=== PATIENT | female | born 1980 | race African-American/Black ===

== ENCOUNTER 2020-01-17 15:34 | Emergency (ER) | payer BC, SELFPAY ==
[2020-01-17 15:39] VITALS: BP 154/99; PULSE 78; RESP 20; TEMP 36.8; O2SAT 100
--- NOTE | 2020-01-17 16:07 | ED.GENADULT ---
HPI - General Adult General Chief complaint: Chest Pain Stated complaint: Chest Pain, Headache, Body Aches Time Seen by Provider: 01/17/20 15:36 Source: patient Mode of arrival: ambulatory Limitations: no limitations History of Present Illness HPI narrative: Patient is a 39-year-old female who presents to emergency department for evaluation of upper respiratory symptoms for the last several days noting sick contact with a family member patient is unsure as to the etiology of the illness patient notes aching pain to the throat moderate headache rhinorrhea congestion cough productive of phlegm patient was seen in urgent care had negative chest radiograph negative strep and flu. Patient was sent over for evaluation due to chest heaviness likely due to her coughing. Patient on arrival is in no distress has not taken anything for her symptoms Related Data Allergies Allergy/AdvReac Type Severity Reaction Status Date / Time adhesive Allergy Intermediate RASH Unverified 01/17/20 15:43 naproxen Allergy Intermediate Unknown Unverified 01/17/20 15:43 ibuprofen Allergy Mild RASH Verified 01/17/20 15:43 divalproex sodium Allergy Unknown rash Verified 01/17/20 15:43 hydrocortisone Allergy Unknown RASH, Verified 01/17/20 15:43 MOUTH SWELLING NSAIDS (Non-Steroidal Allergy Unknown RASH Verified 01/17/20 15:43 Anti-Inflamma adhesives Allergy Mild Rash Uncoded 01/17/20 15:43 PHENYTOIN SODIUM Allergy Unknown Unknown Uncoded 01/17/20 15:43 Review of Systems Review of Systems: All systems reviewed & are unremarkable except as noted in HPI and below PMFSH Family History Family History (Updated 12/12/13 @ 07:13 by DOCTOR UNKNOWN) Mother Hypertension Grandparent Carcinoma of colon Social History Social History Smoking status: Never smoker Alcohol intake: current Exam Narrative: Exam Narrative: GENERAL: Well-appearing, well-nourished, and in no acute distress. HEAD: Normocephalic, atraumatic. EYES: PERRLA and EOMI. ENT: Nares clear, no rhinorrhea or epistaxis. Mucous membranes moist. Oropharynx without tonsillar hypertrophy exudate or other lesions. CHEST: Clear to auscultation. No respiratory distress. No wheezes rales or rhonchi HEART: Regular rate and rhythm. No murmur heard. EXTREMITIES: Normal range of motion. No edema. SKIN: Warm, dry, no rash. NEURO: No focal deficits. Alert and oriented x3. PSYCH: Normal mood and affect. Course Course Emergency Course: Patient in the room in no distress aware of case findings treatment plan and diagnosis agreeing to follow-up as directed or to return if symptoms worsen or concerns Vital Signs Vital signs: Vital Signs Temperature 98.2 F 01/17/20 15:39 Pulse Rate 78 01/17/20 15:39 Respiratory Rate 20 01/17/20 15:39 Blood Pressure 154/99 H 01/17/20 15:39 Pulse Oximetry 100 01/17/20 15:39 Temperature 98.2 F 01/17/20 15:39 Pulse Rate 78 01/17/20 15:39 Respiratory Rate 20 01/17/20 15:39 Blood Pressure 154/99 H 01/17/20 15:39 Pulse Oximetry 100 01/17/20 15:39 Medical Decision Making MDM Narrative Medical decision making narrative: Patient with upper respiratory infection and swab for COVID advised to self quarantining pending follow-up with primary care to get her results patient otherwise in the room in no distress afebrile no hypoxemia or other concerning findings on the evaluation felt appropriate for outpatient reevaluation given reasons to return Vital Signs Vital Signs: Vital Signs Temperature 98.2 F 01/17/20 15:39 Pulse Rate 78 01/17/20 15:39 Respiratory Rate 20 01/17/20 15:39 Blood Pressure 154/99 H 01/17/20 15:39 Pulse Oximetry 100 01/17/20 15:39 Temperature 98.2 F 01/17/20 15:39 Pulse Rate 78 01/17/20 15:39 Respiratory Rate 20 01/17/20 15:39 Blood Pressure 154/99 H 01/17/20 15:39 Pulse Oximetry 100 01/17/20 15:39 Discharge Mirela
[2020-01-17 16:22] VITALS: BP 163/97; PULSE 73; RESP 20; O2SAT 100
[2020-01-18 13:45] LABS: SARS-CoV-2 RNA PCR Negative
== END 2020-01-17 16:25 | disposition home or self-care (01) ==
PROVIDERS: Emergency Medicine Emergency Medical Services; Emergency Provider Emergency Medicine
DX: J06.9 Acute upper respiratory infection, unspecified (principal); Z20.828 Contact with and (suspected) exposure to other viral communicable diseases
CPT/HCPCS: 87635; 99283; C9803; U0003

== ENCOUNTER → 2020-07-08 10:17 | Outpatient (CLI) | payer BC, SELFPAY ==
[2020-07-08 23:58] LABS: SARS-CoV-2 RNA PCR Negative
== END ==
PROVIDERS: Visit Provider Family Medicine
DX: Z20.822 Contact with and (suspected) exposure to COVID-19 (principal)
CPT/HCPCS: C9803; U0003; U0005

== ENCOUNTER → 2020-12-23 15:56 | Outpatient (CLI) | payer BC, SELFPAY ==
--- NOTE | ~2020-12-23 | MM_ITS ---
EXAMINATION: MM screening [facility] BI w rosibel HISTORY: Screening mammogram TECHNIQUE: Craniocaudal and mediolateral oblique 3-D tomosynthesis images were obtained and synthetic 2-D images were generated. Bilateral rotated lateral cc views. CAD analysis was submitted and interp reted. COMPARISON: No prior mammogram is available for comparison at this institution. BREAST PARENCHYMAL COMPOSITION: The breasts are extremely dense, which lowers the sensitivity of mamm ography. FINDINGS: There is a 3 cm circumscribed opacity with halo sign in the inner mid left breast at approx imately 9:00 position, most likely a benign cyst. Ultrasound correlation is recommended. Otherwise there is no evidence of suspicious mass, calcification, or architectural distortion to sugg est malignancy in either breast.. IMPRESSION: 1. 3 cm circumscribed opacity with halo sign in the inner mid left breast 2. Targeted left breast ultrasound is recommended BI-RADS Category 0: Incomplete: Needs additional imaging evaluation. Reviewed, dictated and finalized at location A.
== END ==
PROVIDERS: PCP Family Medicine; Visit Provider Nurse Practitioner Obstetrics & Gynecology
DX: Z12.31 Encounter for screening mammogram for malignant neoplasm of breast (principal); R92.8 Other abnormal and inconclusive findings on diagnostic imaging of breast
CPT/HCPCS: 77063; 77067

== ENCOUNTER → 2021-01-29 08:21 | Outpatient (CLI) | payer BC, SELFPAY ==
--- NOTE | ~2021-01-29 | US_ITS ---
US breast LT limited INDICATION: Left breast mass seen on recent examination. TECHNIQUE: Dedicated left breast ultrasound COMPARISON: Mammogram dated 12/23/2020 FINDINGS: At 9-10:00 position of the left breast near the areola there is a 2.2 x 1.9 x 1.3 cm cyst. No suspicious masses to suggest malignancy. IMPRESSION: 1: Left breast cyst corresponding to the mammographic finding measuring 2.2 cm maximum dimension. No sonographic evidence for malignancy. Routine yearly screening mammogram and regular clinical breast examination are recommended. BI-RADS CATEGORY 2 - BENIGN FINDINGS Reviewed, dictated and finalized at location A.
== END ==
PROVIDERS: PCP Family Medicine; Visit Provider Nurse Practitioner Obstetrics & Gynecology
DX: R92.8 Other abnormal and inconclusive findings on diagnostic imaging of breast (principal)
CPT/HCPCS: 76642

== ENCOUNTER 2023-09-02 08:05 | Outpatient (CLI) | payer BC, SELFPAY ==
--- NOTE | ~2023-09-02 | MM_ITS ---
EXAMINATION: MM screening [facility] BI w rosibel HISTORY: Screening TECHNIQUE: Craniocaudal and mediolateral oblique 3-D tomosynthesis images were obtained and synthetic 2-D images were generated. CAD analysis was submitted and interpreted. COMPARISON: 12/23/2020 BREAST PARENCHYMAL COMPOSITION: Dense: The breasts are extremely dense, which lowers the sensitivity of mammography. FINDINGS: There is a developing mass in the upper inner quadrant of the left breast which is obscured by fibroglandular tissue. The right breast is stable without evidence for malignancy. IMPRESSION: 1. Developing left breast mass, upper inner quadrant posteriorly. 2. Additional mammographic views and possible breast ultrasound are recommended. BI-RADS Category 0: Incomplete: Needs additional imaging evaluation. Reviewed, dictated and finalized at location A. IMPRESSION: 1. Developing left breast mass, upper inner quadrant posteriorly. 2. Additional mammographic views and possible breast ultrasound are recommended . BI-RADS Category 0: Incomplete: Needs additional imaging evaluation.
== END 2023-09-02 08:06 ==
LOC: MICIMG 08:06
PROVIDERS: PCP Nurse Practitioner Obstetrics & Gynecology; Visit Provider Nurse Practitioner Obstetrics & Gynecology
DX: Z12.31 Encounter for screening mammogram for malignant neoplasm of breast (principal); N63.21 Unspecified lump in the left breast, upper outer quadrant
CPT/HCPCS: 77063; 77067

== ENCOUNTER 2023-10-10 09:43 | Outpatient (CLI) | payer BC, SELFPAY ==
--- NOTE | ~2023-10-10 | MMUS_ITS ---
EXAMINATION: MM diagnostic [facility] LT w rosibel, US breast LT limited HISTORY: Left breast callback, left breast mass TECHNIQUE: Additional 3-D tomosynthesis spot compression images of the left breast were performed and synthetic 2-D images were generated. CAD analysis was submitted and interpreted. High resolution vieyra ited left breast ultrasound was performed. COMPARISON: 12/23/2020, 01/29/2021 FINDINGS: MAMMOGRAPHIC FINDINGS: Breast parenchyma is extremely dense, which lowers the sensitivity of mammography. Spot compression views demonstrate ovoid 3.7 x 2.8 cm low-density mass at the upper, slightly inner l eft breast. No other distortion or mass seen. No suspicious microcalcification. ULTRASOUND: At the 11:00 position left breast, 5 cm from the nipple, there is a 2.9 x 1.4 x 4.2 cm simple cyst. T his is anechoic, circumscribed, wider than tall, with posterior through transmission. There is an add itional 1.0 cm simple cyst also imaged. There is an additional 0.5 cm simple cyst also imaged. IMPRESSION: No evidence for malignancy. Simple left breast cysts, including a dominant 4.2 cm cyst, as detailed above. BI-RADS Category 2: Benign finding(s). Reviewed, dictated and finalized at location M. IMPRESSION: No evidence for malignancy. Simple left breast cysts, including a dominant 4.2 cm cyst, as detailed above. BI-RADS Category 2: Benign finding(s).
== END 2023-10-10 09:44 ==
LOC: MICIMG 09:44
PROVIDERS: PCP Nurse Practitioner Obstetrics & Gynecology; Visit Provider Nurse Practitioner Obstetrics & Gynecology
DX: Z12.31 Encounter for screening mammogram for malignant neoplasm of breast (principal); N60.02 Solitary cyst of left breast; N63.21 Unspecified lump in the left breast, upper outer quadrant; R92.8 Other abnormal and inconclusive findings on diagnostic imaging of breast
CPT/HCPCS: 76642; 77061; 77065; G0279

== ENCOUNTER 2025-01-07 10:48 | Outpatient (CLI) | payer BC, SELFPAY ==
--- OUTSIDE RECORDS SUMMARY | 2024-12-30 09:40 | XMS_ITS ---
Author Organization [facility] Address [address] [place] [address] Care Team Providers Care Pie Bottomer Name Role Phone Endy Bruno Primary Care Provider Yesenia Mobley [phone] REASON FOR VISIT 3 Month Psych F/U & Med Refill Social History Sex Assigned At : Social History Observation Description Sex Assigned At Female Encounters Encounter Location Date Provider Diagnosis [address] [address] 12/30/2024 Endy Bruno Plan Of Treatment Next Appt Details Provider Name:Endy Connell , 01/09/2025 02:40:00 PM, [address] [facility], [place], [address], Progress Notes * Mitchell TORRESDOB:1980 (44 yo F)Acc No.[id number]:12/30/2024 UNLOCKED PROGRESS NOTE Patient: Edgar LEEPaul Mitchell Provider: Catia Bruno DNP, PMHNP-BC :1980 Haylee ge:44 Y S ex:Female Date:12/30/2024 Address:[address] [place], [id number] Subjective: * Chief Complaints: * 1 . 3 Month Psych F/U & Med Refill. * Medical History: Objective: * Vitals: Assessment: Plan: * Treatment: * * Electronic signature of Jazz Bruno , ONDINA, [id number] on 01/07/2025 at 11:40 AM CDT Sign off status: Pending * Provider: Catia Bruno DNP, PMHNP-BC Date: 0 12/30/2024 Generated for Israel fuentes/Janet/eTransmitting on: 0 01/07/2025 11:40 AM CDT
--- NOTE | 2025-01-07 11:02 | ECG_ITS ---
Test Date: 2025-01-07 11:12:56 Measurements Intervals Kiel Rate: 72 P: 58 NE: 188 QRS: 18 QRSD: 81 T: 30 QT: 395 QTc: 434 Interpretive Statements SINUS RHYTHM NORMAL ELECTROCARDIOGRAM No previous ECG available for comparison Electronically Signed On 01-07-2025 12:37:09 CDT by Jose Carlos Joe M.D.
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
[2025-01-07 12:10] LABS: Alanine Aminotransferase 13 U/L (6-35); Albumin Level 4.4 g/dL (3.5-5.1); Alkaline Phosphatase 71 U/L (38-126); Anion Gap 8 mmol/L (4-12); Aspartate Amino Transferase 20 U/L (14-36); Bilirubin,Total 0.4 mg/dL (0.2-1.3); Blood Urea Nitrogen 8 mg/dL (7-17); Calcium 8.9 mg/dL (8.4-10.2); Carbon Dioxide 26 mmol/L (22-30); Chloride 105 mmol/L (98-107); Estimated Glomerular Filt Rate 60; Glucose 88 mg/dL (65-110); Potassium 4.0 mmol/L (3.4-5.0); Sodium 139 mmol/L (137-145); Total Protein 7.7 g/dL (6.3-8.2)
[2025-01-07 13:40] LABS: Lithium < 0.2 mmol/L (0.6-1.2)
== END 2025-01-07 10:49 | disposition home or self-care (01) ==
LOC: ANHSURGERY 10:53
PROVIDERS: Anesthesiology; PCP Family Medicine; Visit Provider Obstetrics & Gynecology
DX: Z01.818 Encounter for other preprocedural examination (principal); N92.0 Excessive and frequent menstruation with regular cycle; I10 Essential (primary) hypertension
CPT/HCPCS: 36415; 80053; 80178; 86850; 86900; 86901; 93005

== ENCOUNTER 2025-01-14 00:37 | Day surgery (SDC) | payer BC, SELFPAY ==
--- NOTE | 2025-01-01 15:28 | SUR.PREOP ---
[facility] has started construction of its new state of the art ER which will open Spring 2026. With this, we anticipate parking may be a challenge for some our surgical patients and families. Parking spaces are limited but are available for all Surgical, obstetrics, and ER patients sharing this lot. If you arrive and find you are having a hard time finding a parking space, please note that we understand the challenges, please drive around the hospital and park near Hospital Entrance 1. When you enter this entrance, you can ask a volunteer to direct or take you back to the surgical waiting area to check in. We appreciate everyone?s understanding of these expected challenges while we build for your future. Report to the Outpatient Waiting Room, entrance under the green pavilion located off [address], at time ___07____ on date ___01/14/25____. Planned Procedure Time: ____09____.? Time changes happen often and if your time is changed the preop area will call you the afternoon before. - You and your visitor will be asked to self-screen and do not enter if you have any COVID symptoms. Please call surgeon if you need to reschedule. - A mask is optional within the hospital at this time. Patients may have clear liquids (water, carbonated beverages, clear teas, apple juice) until 3 hours prior to surgery with a maximum of 20 ounces. - NO CLEAR LIQUIDS AFTER 0600 - No food from midnight until time of surgery and no smoking, or chewing tobacco (or any form of nicotine). No chewing gum, candy or mints. - Infants may have breast milk until 4 hours before surgery, formula 6 hours prior to surgery. - Children will be allowed to drink immediately following surgery.? If applicable, please bring a bottle or sippy cup to assist with drinking. Juice, water, soda, and popsicles are readily available.? For infants on formula, please bring formula the day of surgery.? Pacifiers are allowed. Take only the following medications with a SIP of water on the morning of surgery: BUPROPION DO NOT STOP ANY OF YOUR OTHER PRESCRIPTION MEDICATIONS PRIOR TO SURGERY EXCEPT THE FOLLOWING Hold all vitamins and supplements for 3 days per anesthesiologist. Medications to discontinue per physician N/A Date to take last dose Please no make-up, nail martiniquais, hairspray, perfume, deodorant, or body powder the day of surgery.? No jewelry (including any body piercings) or valuables the day of surgery, leave them at home.? Please take a shower or bath the night before, or the morning of, surgery with an antibacterial soap.? Wear comfortable, loose fitting clothing.? Children are encouraged to wear pajamas. - Jewelry must be removed prior to entering the operating room.? Rings and piercings that are not removed may be cut off. - The hospital will not accept responsibility for valuables.? - Please leave all valuables, including medications, at home the day of surgery. If you are going home after surgery, a licensed high lift driver must drive you home.? - NO public transportation without another adult if you receive anesthesia. - We recommend that an adult stay with you for 24 hours following discharge. - We also recommend that you do not drive, make important decision, drink alcoholic beverages, or take any drugs that were not prescribed by your health care provider for at least 24 hours after your discharge time. For Pediatric surgeries, we recommend two adults accompany the child home. Follow any additional instructions given to you from your surgeon. Telephone instructions given to WING TORRES and asked if any additional questions and then verbalized understanding. Patient advised to call surgeon office or pre surgery nurse liaison [phone] if any additional questions.
[2025-01-01 15:52] VITALS: BMI 29.7
[2025-01-14] VITALS (11 sets, daily range): BP systolic 106–152; BP diastolic 68–94; PULSE 77–104; RESP 14–22; TEMP 36.1–37.3; O2SAT 92–100
--- OUTSIDE RECORDS SUMMARY | 2025-01-14 00:48 | XMS_ITS | Patient Health Record ---
Author Organization [facility] Address [address] [place] [address] Care Team Providers Care Vest Backer Name Role Phone Damion Endy Primary Care Provider Yesenia Mobley [phone] Allergies Allergen (clinical drug ingredient) Drug/Non Drug Allergy documented on EMR Reaction Allergy Type Onset Date Status Aleve Unknown Drug Allergy Active hydrocodone Hydrocodone Unknown Drug Allergy Act jerome Penicillin Unknown Drug Allergy Active Reason For Referral No Information Medications Medication SIG (Take, Route, Frequency, Duration) Notes Start Date End Date Status hydroCHLOROthiazide 12.5 MG 1 capsule in the morning Orally Once a day; Duration: 30 day(s) Active Hinckley Carbonate ER 300 MG 2 tablets at bedtime Orally Once a day; Duration: 30 days 11/20/2024 Active Lurasidone HCl 40 MG 1 tablet in the evening with food Orally Once a day; Duration: 30 days 11/20/2024 Active traZODone HCl 50 MG 1 tablet at bedtime as needed Orally Once a day Client states she doesn't need refill as has left overs from prior script 11/15/2024 Active amLODIPine Besylate 5 MG 1 tablet Orally Once a day; Duration: 30 day(s) Active Social History Tobacco Use: Social History [...] yo son with his Father. Work: [employer] at current time-home based due to [employer]. Education: Bachelors in Business Management : none [...] yo son with his Father. Work: [employer] [facility] [employer], later [employer] at current time-home based due to [employer]. Education: Bachelors in [employer] : none Legal: none Substance Use: [...] yo son with his Father. Work: [employer] at current time-home based due to [employer]. Education: Bachelors in Business Management : none [...] Status Risk Notes Problem Bipolar 1 disorder (173020500) Bipolar 1 disorder (F31.9) Active confirmed Problem Premenstrual dysphoric disorder (837495) Premenstrual dysphoric disorder (F32.81) Active confirmed Vital Signs Heart Rate 79 /min 11/20/2024 Respiratory Rate 16 /min 11/20/2024 Blood pressure diastolic 82 mm Hg 11/20/2024 Oximetry 98 % 11/20/2024 Height 65 in 11/20/2024 Blood pressure systolic 126 mm Hg 11/20/2024 Weight 181.4 lbs 11/20/2024 BMI 30.18 kg/m2 11/20/2024 Encounters Encounter Location Date Provider Diagnosis [address] [address] 04/03/2024 Endy Bruno Bipolar II disorder F31.[address] [address] 06/26/2024 Endy Bruno Bipolar II disorder F31.[address] [address] 10/08/2024 Endy Bruno Bipolar II disorder F31.[address] [address] 11/12/2024 Endy Bruno Bipolar 1 disorder F31.[address] [address] 11/20/2024 Endy Bruno Bipolar 1 disorder F31.[address] [address] 12/05/2024 Endy Bruno Bipolar 1 disorder F31.[address] [address] 12/19/2024 Endy Bruno Bipolar 1 disorder F31.[address] [place] [address] 12/30/2024 Endy Bruno Bipolar 1 disorder F31.[address] [place] [address] 01/09/2025 Endy Bruno Bipolar 1 disorder F31.9 and Medication monitoring encounter Z51.81 [facility] [address] [place] [address] 09/25/2024 Endy Bruno [facility] [address] [address] 10/23/2024 Endy Bruno Bipolar II disorder F31.[address] [place] [address] 11/01/2024 Endy Bruno [facility] [address] [address] 11/04/2024 Endy Bruno [place] [address] [place] [address] 11/15/2024 Endy Bruno [address] [place] [address] 01/03/2025 Endy Bruno [address] [place] [address] 01/12/2025 Endy Bruno Assessments Encounter Date Diagnosis (ICD [...] on lithium or trazodone at this time. 01/09/2025 Bipolar 1 disorder (ICD-10 - F31.9) Client continues to have headaches after restarting bupropion and despite having benefits to her depression has to discontinue due to side effects. Given this, she is open to trial of increase in lithium from 300 mg to 600 mg ER at night with the understanding that she will need to have her lithium level drawn. States she recently (within last week) had CMP and thyroid levels checked and will have these results sent over to office. Will write for lithium level. 01/09/2025 Medication monitoring encounter (ICD-10 - Z51.81) Client continues to have headaches after restarting bupropion and despite having benefits to her depression has to discontinue due to side effects. Given this, she is open to trial of increase in lithium from 300 mg to 600 mg ER at night with the understanding that she will need to have her lithium level drawn. States she recently (within last week) had CMP and thyroid levels checked and will have these results sent over to office. Will write for lithium level. 04/03/2024 Other Discussed sleep hygiene and caffeine [...] number to the 24-hour crisis line at [facility]. Questions addressed. Client verbalized understanding of all [...] number to the 24-hour crisis line at [facility]. Questions addressed. Client verbalized understanding of all [...] number to the 24-hour crisis line at [facility]. Questions addressed. Client verbalized understanding of all [...] number to the 24-hour crisis line at [facility]. Questions addressed. Client verbalized understanding of all [...] number to the 24-hour crisis line at [facility]. Questions addressed. Client verbalized understanding of all [...] number to the 24-hour crisis line at [facility]. Questions addressed. Client verbalized understanding of all [...] number to the 24-hour crisis line at [facility]. Questions addressed. Client verbalized understanding of all [...] number to the 24-hour crisis line at [facility]. Questions addressed. Client verbalized understanding of all [...] on lithium or trazodone at this time. 01/09/2025 Other Discussed sleep hygiene and caffeine intake [...] number to the 24-hour crisis line at [facility]. Questions addressed. Client verbalized understanding of all information and is agreeable to treatment plan. Client continues to have headaches after restarting bupropion and despite having benefits to her depression has to discontinue due to side effects. Given this, she is open to trial of increase in lithium from 300 mg to 600 mg ER at night with the understanding that she will need to have her lithium level drawn. States she recently (within last week) had CMP and thyroid levels checked and will have these results sent over to office. Will write for lithium level. Plan Of Treatment Future Test Test Name Order Date Hinckley (Eskalith), Serum 01/12/2025 Insurance Providers Payer Name Payer Address Payer Phone Subscriber Number Group Number Insured Name Patient Relationship to Insured Coverage Start Date Coverage End Date [facility] [address] [place] [address] [id number] [place] Self - patient is the insured 1 Medical (General) History Medical History History ICD Code HTN LEEP procedure Seizures (stress induced) Surgical History Surgery Date(Month/Year) tubal ligation 2015
--- OUTSIDE RECORDS SUMMARY | 2025-01-14 00:48 | XMS_ITS | Data Portability ---
Author Organization 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 Plan of Treatment Reminders Order Date Submit Date Provider Last Modified By Organization Details Last Modified Time Details Appointments Robotic TLH 2024 09:00A Emilee TELLEZ MD Not available Not available Not available SURG POST OP 2024 05:15P Emilee TELLEZ MD Not available Not available Not available Lab urinalysi s, dipstick 2024 025 [email or web address] [address], [address], [place], [address], 09/19/2024 12:41:29 HBsAg (hepatiti s B surface Ag), serum 2024 025 [facility] (Lab), [address] [place], [address], 10/02/2024 12:26:06 CT + NG + TV, RNA, unspecifi ed specimen 2024 025 [facility] (Lab), [address] [facility], [place], [address], 09/20/2024 13:10:02 Referral None recorded. Procedures None recorded. Surgeries robotic assisted hysterect joan with salpingec judith (SURG) 2024 025 [id number], [address], [place], [address], 01/03/2025 14:46:16 Imaging US, pelvis 2024 025 [email or web address] [address], [address], [place], [address], 12/26/2024 21:19:53 US, transvagi nal 2024 025 [email or web address] [address], [address], [place], [address], 12/26/2024 21:19:53 Medication Orders None recorded. Patient TargetsNo targets recorded. Patient InstructionsNo instructions recorded. Reason for Referral None Reported. Results Created Date Observation Date Name Description Value Unit Range Abnormal Flag Note LastModifiedBy Organization Detail LastModifiedTime 09/20/1909/19/2024 CT/GC AND TRICH OMONA S VAGIN KELSIE (RRNA ), URINE chlamydia trachomatis, PCR Negati ve negati ve Not Available [facility] (Lab) [address], [place], [address], 09/20/2024 13:10:02 09/20/19 25 09/19/2024 CT/GC AND TRICH OMONA S VAGIN KELSIE (RRNA ), URINE neisseria gonorrhoeae, PCR Negati ve negati ve Not Available [facility] (Lab) [address], [place], [address], 09/20/2024 13:10:02 09/20/19 25 09/19/2024 CT/GC AND TRICH OMONA S VAGIN KELSIE (RRNA ), URINE trichomonas vaginalis ribosomal RNA (rrna) Negati ve negati ve Not Available [facility] (Lab) [address], [place], [address], 09/20/2024 13:10:02 09/20/19 25 09/19/2024 urina lysis , dipst ick Leukocytes - Not Available [facility] [address], [place], [address], 09/19/2024 12:40:42 09/20/19 25 09/19/2024 urina lysis , dipst ick Nitrite - Not Available [address], [place], [address], 09/19/2024 12:40:42 09/20/19 25 09/19/2024 urina lysis , dipst ick Urobilinogen - Not Available [facility] britni [address], [place], [address], 09/19/2024 12:40:42 09/20/19 25 09/19/2024 urina lysis , dipst ick Protein trace Not Available [address], [place], [address], 09/19/2024 12:40:42 09/20/19 25 09/19/2024 urina lysis , dipst ick pH 8 Not Available [address], [place], [address], 09/19/2024 12:40:42 09/20/19 25 09/19/2024 urina lysis , dipst ick Specific Ono 1.000 Not Available [facility] llevon [address], [place], [address], 09/19/2024 12:40:42 09/20/19 25 09/19/2024 urina lysis , dipst ick Ketone - Not Available [address], [place], [address], 09/19/2024 12:40:42 09/20/19 25 09/19/2024 urina lysis , dipst ick Bilirubin - Not Available [facility] [address], [place], [address], 09/19/2024 12:40:42 09/20/19 25 09/19/2024 urina lysis , dipst ick Glucose - Not Available [address], [place], [address], 09/19/2024 12:40:42 09/20/19 25 09/19/2024 urina lysis , dipst ick Appearance CLEAR Not Available [facility] kristen [address], [place], [address], 09/19/2024 12:40:42 09/20/1909/19/2024 urina lysis , dipst ick Color LIGHT YELLOW Not Available [address], [place], [address], 09/19/2024 12:40:42 10/02/19 25 10/01/2024 HBSAG /HCV/ HIV/R NJ HIV antigen/anti body Nonrea ctive nonrea ctive HIV-1 antig en and HIV-1 /HIV- 2 antib odies were not detec landon. No labor atory evide nce of HIV infec tion. Not Available [facility] (Lab) [address], [place], [address], 10/02/2024 12:26:06 10/02/19 25 10/01/2024 HBSAG /HCV/ HIV/R NJ hepatitis B surface antigen Non-re active non-re active This assay was perfo rmed using [employer] n reage nts and test kits. Value s obtai handy with other assay metho ds or kits canno t be used inter boyce eably . Not Available [facility] (Lab) [address], [place], [address], 10/02/2024 12:26:06 10/02/19 25 10/01/2024 HBSAG /HCV/ HIV/R NJ hepatitis C antibody Non-re active non-re active Antib odies to HCV Not Detec landon, does not exclu de the possi bilit y of expos ure to HCV. Not Available [facility] (Lab) [address], [place], [address], 10/02/2024 12:26:06 10/02/19 25 10/01/2024 HBSAG /HCV/ HIV/R NJ RPR qualitative Nonrea ctive nonrea ctive Not Available [facility] (Lab) [address], [place], [address], 10/02/2024 12:26:06 12/27/19 25 12/26/2024 US, pelvi s No observ ation record ed. [email or web address], [facility], [place], [address], 12/26/2024 16:22:16 12/27/19 25 12/26/2024 US, pelvi s No observ ation record ed. [email or web address] [address], [place], [address], 12/26/2024 14:45:46 12/27/1912/26/2024 US, trans vagin al No observ ation record ed. [email or web address] [address], [place], [address], 12/26/2024 14:45:58 Result Notes None recorded. Problems Name Problem SNOMED Code Status Onset Date Resolution Date Notes Provider Name and Address Organization Details Recorded Time Venereal disease screenin g Completed 201112/03/2020 Screenin g examinat ion for venereal disease; Recorded Elsewher e: No [facility] S ource: EHR Vegetable Tier luh: N Practi ce ID: 0001 Erich lable Time: 05:00:00 PM Lizbeth Strong [place], [place] - [facility] 17:06:44 Vaginiti s and vulvovag initis Completed 201112/03/2020 Vaginiti s;Record ed Elsewher e: No Locat ion: [facility] evon [facility] S ource: EHR Vegetable Tier luh: N Billyti ce ID: 0001 Erich lable Time: 05:00:00 PM Lizbeth Strong [facility] 1 17:06:42 Pregnanc y test negative [id number] Completed 201312/03/2020 Pregnanc y examinat ion or test, negative result;R ecorded Elsewher e: No Locat ion: [facility] S ource: EHR Vegetable Tier luh: N Billyti ce ID: 0001 Erich lable Time: 05:30:00 PM Lizbeth Strong [facility] 17:06:30 Female genital organ symptoms [id number] Completed 201312/03/2020 Pelvic pain;Rec orded Elsewher e: No Locat ion: [facility] S ource: EHR Vegetable Tier luh: N Billyti ce ID: 0001 Erich lable Time: 03:15:00 PM Lizbeth Strong [facility] 17:06:19 Leukorrh ea [id number] Completed 201312/03/2020 Leukorrh ea, not specifie d as infectiv e;Record ed Elsewher e: No Locat ion: [facility] S ource: EHR Vegetable Tier luh: N Billyti ce ID: 0001 Erich lable Time: 03:15:00 PM Lizbeth Strong [facility] 17:06:27 Urinary tract infectio us disease [id number] Completed 201312/03/2020 UTI;Mc rded Elsewher e: No Locat ion: [facility] S ource: EHR Vegetable Tier luh: N Billyti ce ID: 0001 Erich lable Time: 03:15:00 PM Lizbeth Strong [facility] 1 17:06:41 Abnormal cervical Papanico laou smear with human papillom avirus deoxyrib onucleic acid detected [id number] Completed 201412/03/2020 Cervical high risk human papillom avirus (HPV) DNA test positive ;Recorde d Elsewher e: No Locat ion: [facility] S ource: EHR Vegetable Tier luh: N Practi ce ID: 0001 Erich lable Time: 05:00:00 PM Lizbeth [facility] 1 17:06:03 Adult health examinat ion Completed 201412/03/2020 ROUTINE MEDICAL EXAM;Rec orded Elsewher e: No Locat ion: [facility] S ource: EHR Vegetable Tier luh: N Practi ce ID: 0001 Erich lable Time: 05:00:00 PM Lizbeth [facility] 1 17:06:08 Speciali d medical examinat ion Completed 201412/03/2020 ROUTINE DATA CONTROL ASSISTANT EXAMINAT ION;Mc rded Elsewher e: No Locat ion: [facility] S ource: EHR Vegetable Tier luh: N Practi ce ID: 0001 Erich lable Time: 05:00:00 PM Lizbeth [facility] 1 17:06:38 Cytologi c finding Completed 201412/03/2020 Papanico laou smear of cervix with low grade squamous intraepi thelial lesion (LGSIL); Recorded Elsewher e: No Locat ion: [facility] S ource: EHR Vegetable Tier luh: N Practi ce ID: 0001 Erich lable Time: 03:15:00 PM Lizbeth [facility] 1 17:06:15 Cervical intraepi thelial neoplasi a grade 2 [id number] Completed 201412/03/2020 [id number] 2;Record ed Elsewher e: No Locat ion: [facility] S ource: EHR Vegetable Tier luh: N Practi ce ID: 0001 Erich lable Time: 03:30:00 PM Lizbeth Strong [facility] 1 17:06:12 Postoper ative follow-u p visit Completed 201412/03/2020 Post operativ e follow-u p;Record ed Elsewher e: No Locat ion: [facility] S ource: EHR Vegetable Tier luh: N Practi ce ID: 0001 Erich lable Time: 03:30:00 PM Lizbeth Strong [facility] 1 17:06:28 Screenin g for malignan t neoplasm of cervix Completed 201412/03/2020 Encounte r for screenin g for malignan t neoplasm of cervix;R ecorded Elsewher e: No Locat ion: [facility] S ource: EHR Vegetable Tier luh: N Practi ce ID: 0001 Erich lable Time: 03:00:00 PM Lizbeth Strong [facility] [address] 17:06:[address] Concept Completed 201512/03/2020 Encntr for general adult medical exam w/o abnormal findings ;Recorde d Elsewher e: No Locat ion: [facility] S ource: EHR Vegetable Tier luh: N Practi ce ID: 0001 Erich lable Time: 04:45:00 PM Lizbeth Strong [facility] 1 17:06:33 Low risk human papillom avirus deoxyrib onucleic acid detected in specimen from cervix [id number] Completed 201512/03/2020 Cervical low risk HPV DNA test positive ;Recorde d Elsewher e: No Locat ion: [facility] S ource: EHR Vegetable Tier luh: N Practi ce ID: 0001 Erich lable Time: 04:30:00 PM Lizbeth Strong [facility] 1 17:06:22 Infectio n screenin g Completed 201612/03/2020 Encounte r for screenin g for oth infec/pa rastc diseases ;Recorde d Elsewher e: No Locat ion: [facility] barn[facility] S ource: EHR Vegetable Tier luh: Sanaz Cervantesti ce ID: 0001 Erich lable Time: 03:30:00 PM Lizbeth Strong [facility], [facility] 1 17:06:25 Increase d frequenc y of urinatio n [id number] Completed 201612/03/2020 Urinary frequenc y;Record ed Elsewher e: No [facility] Vegetable Tier luh: N Billyti ce ID: 0001 Erich lable Time: 04:30:00 PM Lizbeth Strong [facility], [facility] 17:06:24 Finding of menstrua l bleeding Completed 201612/03/2020 Menorrha fermin;Mc rded Elsewher e: No Locat ion: Olivamacy [facility] S ource: EHR Vegetable Tier luh: Sanaz Billyti ce ID: 0001 Erich lable Time: 04:30:00 PM Lizbeth Strong [facility] 17:06:20 Acute vaginiti s [id number] Completed 201612/03/2020 Acute vaginiti s;Record ed Elsewher e: No [facility]: [facility] Vegetable Tier luh: N Billyti ce ID: 0001 Erich lable Time: 04:30:00 PM Lizbeth Strong [facility] 1 17:06:05 Body mass index 25-29 - overweig ht [id number] Completed 201612/03/2020 Body mass index (BMI) 27.0-27. 9, adult;Re corded Elsewher e: No Locat ion: [facility] S ource: EHR Vegetable Tier luh: N Billyti ce ID: 0001 Erich lable Time: 04:30:00 PM Lizbeth Strong [facility] 1 17:06:10 Exposure to sexually transmis sible disorder Completed 201612/03/2020 STD exposure ;Recorde d Elsewher e: No Locat ion: [facility] evon [facility] S ource: EHR Vegetable Tier luh: N Practi ce ID: 0001 Erich lable Time: 03:45:00 PM Lizbeth Strong [facility] 17:06:17 Syphilis test finding [id number] Completed 201712/03/2020 Encounte r for STD screenin g;Record ed Elsewher e: No Locat ion: Joanie barnard [facility] S ource: EHR Vegetable Tier luh: N Practi ce ID: 0001 Erich lable Time: 11:00:00 AM Lizbeth Strong [facility] 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 17:06:[address] Concept Completed 201812/03/2020 Encntr for routine child health exam w/o abnormal findings ;Recorde d Elsewher e: No Locat ion: Mashadoretha evon [facility] S ource: EHR Vegetable Tier luh: N Practi ce ID: 0001 Erich lable Time: 03:30:00 PM Lizbeth Strong [facility] 17:06:35 Uses combined oral contrace ption [id number] Completed 201912/03/2020 Encounte r for repeat prescrip tion for control pill;Rec orded Elsewher e: No Locat ion: [facility] evon [facility] S ource: EHR Vegetable Tier luh: N Practi ce ID: 0001 Erich lable Time: 03:30:00 PM Lizbeth Strong [facility] 1 17:06:13 Problem Notes None recorded. Procedures Surgical History Date Name Laterality Status Provider Name and Address Organization Details Recorded Time 02/09/20 24 Date of Last Pap Smear completed Melva Rosaleser [facility] 12/27/2024 13:06:14 10/10/19 24 Date of Last Mammogram completed Sole Baum [facility] 02/09/2024 11:03:34 01/14/20 22 Colposcopy completed Carmita Canales [facility]- [address], [place], [address], [facility] 01/22/2022 13:15:09 01/14/20 22 Colposcopy completed Melva Armando [facility] 01/07/2025 12:56:41 LEEP completed Judith Anthonyaristides [facility] 10/03/2019 10:01:53 Imaging Results None recorded. Procedure Notes None recorded. Medical Equipment None Reported. Allergies Allergen ID Allergen Name Allergen Category Reaction Reaction Severity Criticality Documentation Date Start Date Code Code System Note Provider Name and Address Organization Details Recorded Time 1040 adhesive tape environme nt,medica tion Not available Not available Not available 10/03/2019 Judith Jj [facility] 0 10:03:38 1041 ibuprofen medicatio n Not available Not available Not available 10/03/2019 5640 RxNorm Judith Jj [facility] 0 10:03:49 Medications Name Sig Start Date Stop Date Status Note LastModified by Organization Details LastModified Time quetiapin e 300 mg tablet TAKE ONE HALF (0.5) TABLETS BY MOUTH AT BEDTIME 12/03 completed Not Available Not Available Not Available trazodone 50 mg tablet TAKE 1/2 TO 1 TABLET BY MOUTH ONCE AT BEDTIME NEEDED 02/08 completed Not Available Not Available Not Available fluconazo le 150 mg tablet TAKE 1 TABLET BY MOUTH NOW, REPEAT IN 7 DAYS IF NEEDED 05/05 completed Not Available Not Available Not Available fluconazo le 200 mg tablet TAKE 1 TABLET EVERY OTHER DAY X 3 DOSES. 12/14 completed Not Available Not Available Not Available metronida zole 0.75 % (37.5 mg/5 gram) vaginal gel insert 1 applicat orful by vaginal route every day at bedtime for 5 nights 05/05 completed Not Available Not Available Not Available lithium carbonate ER 300 mg tablet,ex tended release TAKE 1 TABLET BY MOUTH EVERYDAY AT BEDTIME active Not Available Not Available No t Available metronida zole 500 mg tablet TAKE 1 TABLET BY MOUTH EVERY 12 HOURS DIRECTED FOR 7 DAYS 05/05 completed Not Available Not Available Not Available amlodipin e 5 mg tablet TAKE 1 TABLET BY MOUTH EVERY DAY 12/20 completed Not Available Not Available Not Available tramadol 50 mg tablet take 1 tablet by oral route every 6 hours as needed 08/09 completed Prescrib ed Elsewher e: Yes [facility] By: [email or web address] trick En counter DateTime : 07/12/19 03:30:00 PM Not Available Not Available Not Available quetiapin e 100 mg tablet TAKE 1 TABLET BY MOUTH EVERYDAY AT BEDTIME 12/03 completed Not Available Not Available Not Available triamcino lone acetonide 0.1 % topical cream APPLY 1 APPLICAT ION (TOPICAL ) 3 TIMES PER DAY NEEDED 02/08 completed Not Available Not Available Not Available lamotrigi ne 25 mg tablet TAKE 1 TABLET BY MOUTH EVERYDAY AT BEDTIME 04/23 completed Not Available Not Available Not Available amlodipin e 10 mg tablet TAKE 1 TABLET BY MOUTH EVERY DAY active Not Available Not Available No t Available bupropion HCl 75 mg tablet TAKE 1 TABLET BY MOUTH EVERY DAY IN THE MORNING 04/23 completed Not Available Not Available Not Available hydrochlo rothiazid e 12.5 mg capsule 12/14 completed Not Available Not Available Not Available triamtere ne 37.5 mg-hydroc hlorothia zide 25 mg tablet take 1 tablet by oral route every day 01/25 completed Prescrib ed Elsewher e: Yes [facility] odify By: [email or web address] z Encoun ter DateTime : 08/10/19 16 04:45:00 PM Not Available Not Available Not Available hydrochlo rothiazid e 25 mg tablet TAKE 1 TABLET BY MOUTH EVERY DAY 01/07 completed Not Available Not Available Not Available Zoloft 100 mg tablet take 1 tablet by oral route every day 07/04 completed Prescrib ed Elsewher e: Yes [facility] By: [email or web address] z Encoun ter DateTime : 02/04/20 15 03:00:00 PM Not Available Not Available Not Available Zoloft 25 mg tablet take 1 tablet by oral route every day 07/11 completed Prescrib ed Elsewher e: Yes [facility] odify By: [email or web address] trick En counter DateTime : 05/12/19 15 05:00:00 PM Not Available Not Available Not Available ondansetr on 4 mg disintegr ating tablet 12/14 completed Not Available Not Available Not Available amoxicill in 500 mg-potass ium clavulana te 125 mg tablet TAKE 1 TABLET BY MOUTH EVERY 12 HOURS FOR 7 DAYS 01/23 completed Not Available Not Available Not Available Bactrim DS 800 mg-160 mg tablet take 1 tablet by oral route every 12 hours 08/26 completed Prescrib ed Elsewher e: No Locat ion: [facility] odify By: [email or web address] trick En counter DateTime : 07/17/19 15 04:28:16 PM Not Available Not Available Not Available aripipraz ole 10 mg tablet TAKE 1 TABLET BY MOUTH EVERY DAY FOR 90 DAYS 01/23 completed Not Available Not Available Not Available aripipraz ole 15 mg tablet 05/05 completed Not Available Not Available Not Available aripipraz ole 5 mg tablet 12/13 completed Not Available Not Available Not Available bupropion HCl XL 300 mg 24 hr tablet, extended release TAKE 1 TABLET BY MOUTH EVERY DAY IN THE MORNING ORALLY ONCE A DAY 01/07 completed Not Available Not Available Not Available bupropion HCl XL 150 mg 24 hr tablet, extended release 05/05 completed Not Available Not Available Not Available metoprolo l tartrate 25 mg tablet take 1 tablet by oral route 2 times every day 07/11 completed Prescrib ed Elsewher e: Yes Loca tion: [facility] odify By: [email or web address] trick En counter DateTime : 05/12/19 05:00:00 PM Not Available Not Available Not Available nitrofura ntoin monohydra te/macroc rystals 100 mg capsule TAKE 1 CAPSULE BY MOUTH EVERY 12 HOURS FOR 7 DAYS 12/20 completed Not Available Not Available Not Available multivita min active Not Available Not Available Not Available aripipraz ole 15 mg disintegr ating tablet Place 1 tablet every day by translin gual route. 01/07 completed Not Available Not Available Not Available aripipraz ole 2 mg tablet 12/13 completed Not Available Not Available Not Available quetiapin e 50 mg tablet take 1 tablet by oral route 2 times every day 08/09 completed Prescrib ed Elsewher e: Yes Loca tion: [facility] odify By: [email or web address] trick En counter DateTime : 02/04/20 03:00:00 PM Not Available Not Available Not Available quetiapin e ER 300 mg tablet,ex tended release 24 hr TAKE ONE (1) TABLET BY MOUTH EVERY EVENING AT 5 PM WITHOUT FOOD 12/03 completed Not Available Not Available Not Available quetiapin e ER 50 mg tablet,ex tended release 24 hr PLEASE SEE ATTACHED FOR DETAILED DIRECTIO NS 12/03 completed Not Available Not Available Not Available quetiapin e ER 150 mg tablet,ex tended release 24 hr 1 TABLET IN THE EVENING ORALLY ONCE A DAY AT 4 PM WITHOUT FOOD 30 DAY(S) 04/23 completed Not Available Not Available Not Available aliskiren 150 mg-amlodi pine 10 mg tablet 02/08 completed Not Available Not Available Not Available lurasidon e 40 mg tablet TAKE 1 TABLET IN THE EVENING WITH FOOD BY MOUTH ONCE A DAY active Not Available Not Available No t Available lurasidon e 20 mg tablet TAKE 1 TABLET BY MOUTH EVERY DAY IN THE EVENING WITH FOOD 01/07 completed Not Available Not Available Not Available Slynd 4 mg (28) tablet Take 1 tablet every day by oral route. 12/03 completed Not Available Not Available Not Available Vitals Date Recorded Body height Body mass index (BMI) Body weight Systolic And Diastolic Provider Name and Address Organization Details Last Updated DateTime 09/19/2024 162.56 cm 30.5 kg/m2 13444.72 g 152/100 mm[Hg] Sole Suarezton [facility] 09/19/2024 12:20:49 Date Recorded Body height Body mass index (BMI) Body weight Systolic And Diastolic Provider Name and Address Organization Details Last Updated DateTime 12/20/2024 162.56 cm 28.8 kg/m2 83874.52 g 129/80 mm[Hg] [facility] 12/20/2024 11:20:13 Date Recorded Body height Provider Name an d Address Organization Details Last Updated DateTime 12/27/2024 162.56 cm [facility] 12/27/2024 13:05:33 Date Recorded Body height Body mass index (BMI) Body weight Systolic And Diastolic Provider Name and Address Organization Details Last Updated DateTime 01/07/2025 162.56 cm 31.1 kg/m2 06303.22 g 126/87 mm[Hg] [facility] 01/07/2025 12:53:05 Social History Question Answer Notes LastModified by Organizat ion Details LastModified Time Tobacco Smoking Status [facility] 05/05/2023 10:27:21 Do You Have An Advance Directive? No Information not available 01/13/2022 Are You Blind Or Do You Have Difficulty Seeing? No Information not available 12/14/2021 What Is Your Level Of Caffeine Consumption? Occasional Information not available 12/14/2021 In The 14 Days Before Symptom Onset, Have You Had Close Contact With A Laboratory-confir med COVID-19 While That Case Was Ill? No Information not available 01/13/2022 In The 14 Days Before Symptom Onset, Have You Had Close Contact With A Person Who Is Under Investigation For COVID-19 While That Person Was Ill? No Information not available 01/13/2022 Have You Been To An Area Known To Be High Risk For COVID-19? No Information not available 01/13/2022 Are You Deaf Or Do You Have Serious Difficulty Hearing? Yes Every Once In A While [email or web address] Information not available 02/09/2024 What Type Of Diet Are You Following? REGULAR Information not available 12/14/2021 What Is The Highest Grade Or Level Of School You Have Completed Or The Highest Degree You Have Received? [id number] Information not available 01/13/2022 Are There Any Guns Present In Your Home? No Information not available 01/13/2022 Do You Use Protection During Sex? Usually Information not available 01/13/2022 Do You Use Your Seat Belt Or Car Seat Routinely? Yes Information not available 12/14/2021 Do You Have Smoke And Carbon Monoxide Detectors In Your Home? Yes Information not available 12/14/2021 How Much Tobacco Do You Smoke? No Information not available 01/13/2022 Do You Use Sunscreen Routinely? No Information not available 01/13/2022 Have You Used IV Drugs? No Information not available 01/13/2022 Do You Have Difficulty Walking Or Climbing Stairs? No Information not available 05/05/2023 Sex: Unknown Functional Status Question Answer Note LastModified by Organizat ion Details LastModified Time Do you use any illicit or recreational drugs? Yes Information not available 05/05/2023 What is your level of alcohol consumption? Occasional jgumber Information not available 10/03/2019 Are you able to walk independently without assistance or assistive devices? YESWOREST Information not available 12/14/2021 Are you able to care for yourself independently? Yes Information not available 05/05/2023 What is your occupation? [employer] Information not available 05/05/2023 Do you have difficulty dressing, bathing, grooming, or toileting? No Information not available 05/05/2023 What is your exercise level? Occasional Information not available 05/05/2023 Mental Status Question Answer Note LastModified by Organization D etails LastModified Time Do you feel stressed (tense, restless, nervous, or anxious, or unable to sleep at night)? [id number] Information not available 12/14/2021 Family History Relationship Description Onset Age of this Age Resolved Age Notes LastModified by Organization Details LastModified Time Maternal Grandmother Malignant tumor of cervix Not available 2021 16:55:19 Medical History Condition Response Anxiety Disorder Y History of STI Y Other N History of abnormal pap Y Hypertension Y Depression/ depression Y Gynecological History Statement/Question Response Date of Last Mammogram 10/10/2023 Flow Heavy Date of LMP 12/25/2024 N Was last menstrual period normal Y STIs/STDs N Desired Control Method Hysterectom y Abnormal Pap Yes On BCP's at Conception? N HPV Vaccine N Colposcopy 01/13/2022 Duration of Flow (days) 5 Current Control Method Sterilizati on Age at First Child 20 Are cycles usually normal Y Frequency of Cycle (Q days) 28 Sexually Active? Y Menses Monthly Y Age of first menstrual cycle 13 Date of Last Pap Smear 02/09/2024 Sexual Problems? N LMP Definite N Obstetrics History GPAL:G 3 P 0 0 1 2 Type Value Induced 1 Living 2 Total 3 Past Encounters Encounter ID Performer Location Encounter Start Date Encounter Closed Date Diagnosis/Indication Diagnosis SNOMED-CT Code Diagnosis ICD10 Code Diagnosis IMO Codes [id number] [address] [address] 10/03/2019 15:08:01 10/03/2019 15:49:20 Vaginitis 44422859 N76.0 Discussed use of mild soap like dove or ivory, cotton underwear w/out dye, hypoallerg enic detergent, wipe from front to back, avoid tub baths, keep perineum clean and dry, d/c use of baby wipes. Encouraged daily intake of yogurt or womens health probiotic. Internal and external affirm/std panel collected. [id number] [facility] [address] [address] 12/03/2020 12:54:29 12/03/2020 14:00:44 Gynecologic examination 24819258 Z01.419 Suggested Calcium with Vitamin D 1200-1500m g daily. Patient advised to get an annual flu shot in the fall and she could obtain at [facility] or [facility] care clinic. Also to obtain TDap vaccinatio n if you have not had one in the last 10 years. Recommend yearly mammograms . Encouraged monthly self breast exams. Encourage safe sexual practices, to use condoms and limit partners if not already in a monogamous relationsh ip. Engage in daily exercise of low impact aerobic exercise 45-60 minutes 4-5 times weekly. Avoid tobacco and illicit drugs as well as using moderation with alcohol intake less than 1-2 8 oz beverages daily. This lifestyle behavior pattern will lead to less health conditions and longer life span. If BMI greater than 25 weight watchers or dietary consult advised. All questions have been answered. Patient appears to understand informatio n, but if you have any questions please call or respond to this email. Pap/hpv updatedStd sentNo issues or concernsMa mmo ordered Sexually t ransmitted infectious disease [id number] [id number] Carmita Canales [facility] [address] [address] 12/20/2022 14:57:15 12/20/2022 15:37:25 Gynecologic examination 61205004 Z11.51 Z11.3 Z11.8 Suggested Calcium with Vitamin D 1200-1500m g daily. Patient advised to get an annual flu shot in the fall and she could obtain at [facility] or [facility] clinic. Also to obtain TDap vaccinatio n if you have not had one in the last 10 years. Recommend yearly mammograms . Encouraged monthly self breast exams. Encourage safe sexual practices, to use condoms and limit partners if not already in a monogamous relationsh ip. Engage in daily exercise of low impact aerobic exercise 45-60 minutes 4-5 times weekly. Avoid tobacco and illicit drugs as well as using moderation with alcohol intake less than 1-2 8 oz beverages daily. This lifestyle behavior pattern will lead to less health conditions and longer life span. If BMI greater than 25 weight watchers or dietary consult advised. All questions have been answered. Patient appears to understand informatio n, but if you have any questions please call or respond to this email. Pap/hpv sent (LGSIL confirmed pap/Colpo 2021)STD Screen sentGeneti c Screen discussedC olon Screen naDexa Screen naRoutine Labs UTD PCPMammo ordered Screening mammography 24 952803 Z12.31 Lump in up per outer quadrant of left breast [id number] 93146 N63.21 Will add US to screening mammo for update on left breast lump detected last year.Doesn ;t feel it has gotten larger but wants to ensure no changes.Or dered if they need it. [id number] Carmita Canales [facility] [address],[facility] [place] [address] 04/23/2021 15:22:42 04/23/2021 15:55:46 Vaginitis 97200793 N76.0 Suspect BV on exam.New partner.Up dated STD sentVag cx sent Prefers metrogel Txment Time spent in visit is a total of 15 mins with at least 50% of visit consisting of counseling and review of plan of care.Addit ional precaution karen measures were taken to minimize potential exposure to the Covid-19 virus during this patient s visit, including available hand engineering technologist upon arrive, temperatur e check and being asked a series of screening questions. All staff wore face coverings during this encounter, as well as provided additional cleaning and sanitizing of all surfaces, including countertop s, pens, chairs, door handles, light switches, etc, prior to and following the patient s visit. [id number] Carmita Canales [facility] [address] [address] 12/14/2021 16:25:59 12/14/2021 17:54:17 Gynecologic examination 31035536 Z01.419 Z11.51 Z11.3 Z11.8 Suggested Calcium with Vitamin D 1200-1500m g daily. Patient advised to get an annual flu shot in the fall and she could obtain at [facility] or [facility] clinic. Also to obtain TDap vaccinatio n if you have not had one in the last 10 years. Recommend yearly mammograms . Encouraged monthly self breast exams. Encourage safe sexual practices, to use condoms and limit partners if not already in a monogamous relationsh ip. Engage in daily exercise of low impact aerobic exercise 45-60 minutes 4-5 times weekly. Avoid tobacco and illicit drugs as well as using moderation with alcohol intake less than 1-2 8 oz beverages daily. This lifestyle behavior pattern will lead to less health conditions and longer life span. If BMI greater than 25 weight watchers or dietary consult advised. All questions have been answered. Patient appears to understand informatio n, but if you have any questions please call or respond to this email. Pap/hpv sent STD Screen sent Genetic Screen discussed Colon Screen na Dexa Screen na Routine Labs UTD PCPMammo ordered Lump in up per outer quadrant of left breast [id number] 91432 N63.21 Will add US to screening mammo for update on left breast lump detected last year.Doesn ;t feel it has gotten larger but wants to ensure no changes.Or dered if they need it. [id number] [facility] [address] [address] 01/13/2022 16:25:24 01/24/2022 16:30:04 Low grade squamous intraepithelial lesion on cervical Papanicolaou smear [id number] 9105 R87.612 See procedure notes.Post -procedure instructio ns reviewed with understand ing verbalized .Will contact with results & next steps in plan of care. Counseled on Pap/HPV guidelines /Testing/R esults with understand ing verbalized .All questions answered to patient satisfacti on. Booklet & additional resources regarding pap smear/HPV/ Pap results given. [email or web address].cancer.[email or web address] ov/types/c ervical/un derstandin g-abnormal -hpv-and-p ap-test-re sults/unde rstanding- cervical-c hanges.pdf [id number] MAVERICK Lala [facility] [address] [address] 03/02/2023 10:52:10 03/02/2023 12:03:21 Urinary symptoms 083264819 R39.9 Vaginitis 70123025 N76.0 suspect BVvaginiti s / STI panel senturine cx sentrx sent, r/b/a reviewedrx for fluconazol e requested (frequent yeast with antibiotic use)vulvar care guidelines discussed in-depth, handout given to ptRTC if symptoms persist past treatment Time spent in visit is a total of 30 mins with at least 50% of visit consisting of counseling and review of plan of care. Venereal d isease screening 505224384 Z11.3 [id number] MAVERICK Lala [facility] [address] [address] 05/05/2023 10:10:59 05/05/2023 10:57:45 Urinary symptoms 850067937 R39.9 UA today unremarkab le besides trace bloodurine cx sentwill update pt with results when available and tx as indicated Patient is to contact office or go to nearest ED/Urgent care if fever >/= 100.1, pain, excessive bleeding, unusual drainage or swelling in area of concern; or experienci ng worsening sx's or new onset of concerning sx's. Understand ing verbalized . All questions answered to patient satisfacti on. Time spent in visit is a total of 15 mins with at least 50% of visit consisting of counseling and review of plan of care. [id number] Mauri Tellez MD [facility] [address] [address] 02/09/2024 10:50:25 02/09/2024 12:05:04 Urinary symptoms 301302053 R39.9 Patient presents with symptoms of UTI. Results of dipstick were positive for blood and protein. Urine culture sent. Advised to drink clear fluids, Tylenol for pain and take prescribed medication s as instructed . Empirical treatment with antibiotic s ordered. Patient encouraged to follow up within 1 week if not improving. Gynecologi c examination 67760508 Z01.419 Annual gynecologi erwin exam performed. Patient will come back in a year unless there are new symptoms. Suggest Calcium with Vitamin D if not eating in diet. Patient advised to get annual flu shot. Recommend yearly physicals and perform monthly breast exams. Genetic testing is available for patients with family history of cancer. Engage in safe sexual practices, use condoms. Encouraged to have daily exercise. Avoid tobacco and illicit drugs, moderation of alcohol. If BMI greater than 25 dietary consult advised. If you have any questions please call or email. mammogram- 10/10/23 - BIRADS 2 d/t left breast cyst (pt declined referral to breast specialist for cyst removal), recommende d f/u mammogram in one year with u/s if needed - pt to schedule colon cancer screening - n/a DEXA scan- n/a Pap smear- pap w/ hpv collected (12/20/22 - ASCUS, HPV negative) laboratory evaluation - PCP STI testing - requested Venereal d isease screening 303416008 Z11.3 Pt requested STI testing for GC/CT.Disc ussed the various types of STDs, related symptoms and the potential consequenc es (including effects on fertility) of STD infections . Reviewed ways to limit exposure and prevention techniques . Screening for malignant neoplasm of breast 993053144 Z12.39 Pt to schedule mammogram when due next year to f/u on left breast cyst and annual mammogram bilaterall y. Patient to follow up sooner if she experience s breast changes, such as pain, lumps, skin changes, or nipple discharge. Reviewed MOSBE. Menorrhagia 148482932 N9 2.0 Discussed several treatment options to treat heavy, painful menstrual cycles.Rec ommended ibuprofen 600 mg q8 hrs PRN during heavy cycles.Dis cussed Mirena IUD to help reduce frequency and heavy flow of periods. Risks/bene fits discussed. Pamphlet given.Disc ussed endometria l ablation and risks/bene fits. Discussed that pelvic u/s is recommende d before ablation or if IUD does not reduce heavy bleeding.P atient to call office with decision and if she has any questions/ concerns. [id number] Mauri Tellez MD [facility] [address] [address] 09/19/2024 12:06:46 09/19/2024 12:45:38 Urinary system finding 473917380 R39.9 [id number] Patient presents with symptoms of UTI. Results of dipstick were negative. Urine culture sent.Advis ed to drink clear fluids.Pat ient encouraged to follow up within 1 week if not improving. Venereal d isease screening 577441758 Z11.3 [id number] Pt requested STI testing.Di scussed the various types of STDs, related symptoms and the potential consequenc es (including effects on fertility) of STD infections . Reviewed ways to limit exposure and prevention techniques . [id number] Mauri Tellez MD [facility] [address] [address] 12/20/2024 10:26:14 12/23/2024 08:50:55 Menorrhagia 631176197 N92.0 [id number] This patient is a 44-year-ol d female presents for heavy vaginal bleeding. She has longstandi ng very heavy bleeding. Her menses are regular. However, they require double protection . Patient has accidents, getting blood on her bedding and clothing. Is affected work. She changes a pad or tampon every hour. She leaks blood around the pad and tampon. This bleeding has a profound impact on her quality of life and her activities of daily living.We would like definitive surgical treatment. We discussed hysterecto my. We agreed to proceed with robotic assisted hysterecto my with bilateral salpingect joan. The patient understand s the procedure. The procedure was described to the patient in great detail. the patient also understand s the risks. The risks were also explained in detail. She understand s that injuries May occur during surgery. She understand s these injuries can result in hospitaliz ation, more surgery, and severe illness. She understand s there is risk of hemorrhage and infection. I spent more than 30 minutes on the patient's care in total [id number] Mauri Tellez MD [facility] [address] [address] 12/26/2024 12:26:57 12/26/2024 13:45:23 Menorrhagia 675027892 N92.0 [id number] This patient is a 44-year-ol d female presents for heavy vaginal bleeding. She has longstandi ng very heavy bleeding. Her menses are regular. However, they require double protection . Patient has accidents, getting blood on her bedding and clothing. Is affected work. She changes a pad or tampon every hour. She leaks blood around the pad and tampon. This bleeding has a profound impact on her quality of life and her activities of daily living.We would like definitive surgical treatment. We discussed hysterecto my. We agreed to proceed with robotic assisted hysterecto my with bilateral salpingect joan. The patient understand s the procedure. The procedure was described to the patient in great detail. the patient also understand s the risks. The risks were also explained in detail. She understand s that injuries May occur during surgery. She understand s these injuries can result in hospitaliz ation, more surgery, and severe illness. She understand s there is risk of hemorrhage and infection. I spent more than 30 minutes on the patient's care in total [id number] Mauri Tellez MD [facility] [address] [address] 12/27/2024 12:13:16 12/27/2024 17:57:56 [id number] Mauri Tellez MD [facility] [address] [address] 01/07/2025 12:37:25 01/07/2025 13:14:22 Menorrhagia 071554570 N92.0 [id number] 44-year-ol d female with severe menorrhagi a. We have agreed to perform robotic assisted hysterecto my and bilateral salpingo salpingect joan. She understand s the risks, benefits, and alternativ es. She has completed the informed consent process and is ready to proceed. Health Concerns Section Related Observation LastModified by Organization Detai ls LastModified Time None Recorded Concern Status LastModified by Organization Details LastModified Time None Recorded Advance Directives Directive N: Payers Insurance Date Sequence Insurance Name Policy Number Policy Blue Covered Member ID Blue Member ID Guarantor Name 01/11/2025 1 [facility] ([facility] [id number] [place] [id number] [place] Notes Date Note Type Note Provider Name and Address Organization Details Recorded Time 09/19/2024 text/html 43 y/o female presents with strong urine odor and frequency x 2 weeks.Patient denies urgency or dysuria. Hx frequent UTIs. ANDRES CLAY, SUZANNE [address], [place], [address], [facility] 09/19/2024 12:44:58 12/20/2024 text/html This patient is a 44-year-old female presents for heavy vaginal bleeding. She has longstanding very heavy bleeding. Her menses are regular. However, they require double protection. Patient has accidents, getting blood on her bedding and clothing. Is affected work. She changes a pad or tampon every hour. She leaks blood around the pad and tampon. This bleeding has a profound impact on her quality of life and her activities of daily living.We would like definitive surgical treatment. We discussed hysterectomy. We agreed to proceed with robotic assisted hysterectomy with bilateral salpingectomy. The patient understands the procedure. The procedure was described to the patient in great detail. the patient also understands the risks. The risks were also explained in detail. She understands that injuries May occur during surgery. She understands these injuries can result in hospitalization, more surgery, and severe illness. She understands there is risk of hemorrhage and infection. Mauri Tellez MD [address], [place], [address], [facility] 12/20/2024 17:05:32 01/07/2025 text/html 44-year-old female with severe menorrhagia. We have agreed to perform robotic assisted hysterectomy and bilateral salpingo salpingectomy. She understands the risks, benefits, and alternatives. She has completed the informed consent process and is ready to proceed. The patient understands the procedure. The procedure was described to the patient in great detail. the patient also understands the risks. The risks were also explained in detail. She understands that injuries May occur during surgery. She understands these injuries can result in hospitalization, more surgery, and severe illness. She understands there is risk of hemorrhage and infection. Mauri Tellez MD [address], [place], [address], [facility] 01/07/2025 13:13:37 OBGyn Episode Ob Episode Information Episode Created Date Number of Fetuses Patient Bloodtype Patient rh Status Prepregnancy Weight lbs Domestic Partner Domestic Partner Phone Father Name Resistor Winder Status 10/03/19 20 1 CLOSED Fetus Data First Name Last Name Admitted to NICU Weight (g) Sex Living Outcome Pediatric Complications Fetus ID Race Codes Race Delivery Type [id number] Vaginal Delivery Jad Calculation Initial Jad Date Initial Exam Date Initial Exam Provider Initial Ultrasound Date Last Menstrual Period Date Ultra Sound Weeks Gestation 0 Eighteen To Twenty Week Jad Update Ultra Sound Date Fundal Height At Umbil Quickening Date Ultra Sound Latest Weeks Gestation Final Jad Confirmed By Final Jad Confirmed Date Final Jad Date Ultra Sound Latest Days Gestation 0 0 Menstrual History Last Menstrual Date Menses Monthly On Bcp Conception Prior Menses Frequency Hcg Plus Date Menarche Onset Age Delivery Information Delivery Date Delivery Type Labor Anesthesia Weeks Gestation Incision Type Labor Labor Length Hrs Delivered By Post Complications Tubal Sterilization Discharge Date Comments 4 Discharge Information Feeding Method Contraceptive Method Maternal HG B and HCT Levels Ob Episode Information Episode Created Date Number of Fetuses Patient Bloodtype Patient rh Status Prepregnancy Weight lbs Domestic Partner Domestic Partner Phone Father Name Resistor Winder Status 10/03/19 20 1 CLOSED Fetus Data First Name Last Name Admitted to NICU Weight (g) Sex Living Outcome Pediatric Complications Fetus ID Race Codes Race Delivery Type , Induced [id number] Jad Calculation Initial Jad Date Initial Exam Date Initial Exam Provider Initial Ultrasound Date Last Menstrual Period Date Ultra Sound Weeks Gestation 0 Eighteen To Twenty Week Jad Update Ultra Sound Date Fundal Height At Umbil Quickening Date Ultra Sound Latest Weeks Gestation Final Jad Confirmed By Final Jad Confirmed Date Final Jad Date Ultra Sound Latest Days Gestation 0 0 Menstrual History Last Menstrual Date Menses Monthly On Bcp Conception Prior Menses Frequency Hcg Plus Date Menarche Onset Age Delivery Information Delivery Date Delivery Type Labor Anesthesia Weeks Gestation Incision Type Labor Labor Length Hrs Delivered By Post Complications Tubal Sterilization Discharge Date Comments 8 Discharge Information Feeding Method Contraceptive Method Maternal HG B and HCT Levels Ob Episode Information Episode Created Date Number of Fetuses Patient Bloodtype Patient rh Status Prepregnancy Weight lbs Domestic Partner Domestic Partner Phone Father Name Resistor Winder Status 10/03/19 20 1 CLOSED Fetus Data First Name Last Name Admitted to NICU Weight (g) Sex Living Outcome Pediatric Complications Fetus ID Race Codes Race Delivery Type [id number] Vaginal Delivery Jad Calculation Initial Jad Date Initial Exam Date Initial Exam Provider Initial Ultrasound Date Last Menstrual Period Date Ultra Sound Weeks Gestation 0 Eighteen To Twenty Week Jad Update Ultra Sound Date Fundal Height At Umbil Quickening Date Ultra Sound Latest Weeks Gestation Final Jad Confirmed By Final Jad Confirmed Date Final Jad Date Ultra Sound Latest Days Gestation 0 0 Menstrual History Last Menstrual Date Menses Monthly On Bcp Conception Prior Menses Frequency Hcg Plus Date Menarche Onset Age Delivery Information Delivery Date Delivery Type Labor Anesthesia Weeks Gestation Incision Type Labor Labor Length Hrs Delivered By Post Complications Tubal Sterilization Discharge Date Comments 1 stone- seizures Discharge Information Feeding Method Contraceptive Method Maternal HG B and HCT Levels
[2025-01-14] MEDS: LACTATED RINGERS 1,000 ML 30 ML IV CONT ×2 (07:00→09:53)
[2025-01-14] MEDS: ACETAMINOPHEN 500 MG TABLET 1000 MG PO ×3 (07:00→19:01)
--- NOTE | 2025-01-14 07:23 | WPDHPUPDATE1 ---
History and Physical Update Update Date/Time: 01/14/25 07:23 History and Physical has been reviewed, including an updated exam of the patient. There are NO changes in the patient's condition. Risks, benefits, and alternatives have been discussed and questions answered. Patient agrees to proceed with procedure.
--- NOTE | 2025-01-14 07:25 | WPDANESEPPF ---
Anes - Initial Pre Proc Eval Procedure: Operation Date: 01/14/25 07:30 Proposed Procedures p Robotic Assisted Hysterectomy with Bilateral Salpingectomy - Mauri Tellez MD Date/Time: 01/14/25 07:25 Surgeon: Mauri Tellez MD Pre Op Diagnosis: Menorrhagia with Regular cycle Patient Data Age: 44 Gender: F Height: 1.65 m Weight: 83.01 kg Last Vital Signs Temp 98.5 F 01/14/25 07:00 Pulse 82 01/14/25 07:00 Resp 16 01/14/25 07:00 BP 126/85 01/14/25 07:00 Pulse Ox 100 01/14/25 07:00 O2 Del Method Room Air 01/14/25 07:00 Allergies Allergy/AdvReac Type Severity Reaction Status Date / Time adhesive Allergy Intermediate RASH Verified 01/14/25 07:12 naproxen Allergy Intermediate Unknown Verified 01/14/25 07:12 ibuprofen Allergy Mild RASH Verified 01/14/25 07:12 hydrocortisone Allergy Unknown RASH, Verified 01/14/25 07:12 MOUTH SWELLING NSAIDS (Non-Steroidal Allergy Unknown RASH Verified 01/14/25 07:12 Anti-Inflamma Home Medications ?Medication ?Instructions ?Recorded ?Confirmed ?Type amlodipine 10 mg tablet 10 mg PO HS 01/01/25 01/01/25 History bupropion HCl 150 mg 24 hr tablet, 150 mg PO DAILY 01/01/25 01/01/25 History extended release cholecalciferol (vitamin D3) 25 1,000 unit PO DAILY 01/01/25 01/01/25 History mcg (1,000 unit) capsule (Vitamin D3) lithium carbonate 300 mg 300 mg PO HS 01/01/25 01/01/25 History tablet,extended release lurasidone 40 mg tablet 40 mg PO HS 01/01/25 01/01/25 History Patient hx anesthesia problems: none Family hx anesthesia problems: none Results Review: All pre-operative results and documents have been reviewed as part of the pre-operative evaluation. [facility] Family History Family History (Updated 12/12/13 @ 07:13 by DOCTOR UNKNOWN) Mother Hypertension Grandparent Carcinoma of colon Social History Social History Smoking status: Current every day smoker Alcohol intake: current Substance use type: marijuana Other substance usage details: MARIJUANA DAILY Living arrangements: with family Spiritual care concerns: No Anes - Eval Final PreProcedure Day of Procedure 01/14/25 07:25 Patient weight: obese Heart: regular rate and rhythm Lungs: clear to auscultation Airway: Mallampati scale class II Neurological: alert and oriented Last oral intake: >/= 8 hours ASA classification: II Emergent: no Anesthetic plan: proceed Anesthesia type and monitoring: general ETT and standard monitoring Results Review: All pre-operative results and documents have been reviewed as part of the pre-operative evaluation. Informed Consent: The patient's anesthetic plan and its attendant risks and benefits were discussed with the patient/family/POA. Questions were solicited and answers provided to the satisfaction of the patient/family/POA.
[2025-01-14] MEDS: ceFAZolin 2 GM in SODIUM CHLORIDE 0.9% IV 50 ML 100 ML IVPB (07:33)
[2025-01-14 07:35] LABS: BEDSIDEPREGUCG Negative (Negative)
--- NOTE | 2025-01-14 08:37 | S_PTH ---
PATIENT: [place] LOC: [facility] U#:[id number] AGE/SX: 44/F ROOM: RE01/14/[address]: Mauri Tellez MD : 1980 BED: DIS: 01/15/2025 SPEC #: [id number] RECD: 01/14/25 10:04 STATUS: LASHA REQ #: [id number] CHANTAL: 01/14/25 08:[address]: Mauri Tellez DEPT: [facility] Surgical RECD BY: Bryanna Torres ENTERED: 01/14/25 10:05 SP TYPE: Surgical OTHR DR: Lobito Avila MD Tissues: A - Uterus Procedures: Hematoxylin and Eosin Stain Gross and Microscopic Level 5
--- NOTE | 2025-01-14 09:54 | W.PM.PROC2 ---
Procedure Note - Detailed Date of Procedure 01/14/25 Pre-op Diagnosis Menorrhagia with Regular cycle Post-op Diagnosis Same Procedure Performed Robot assisted Total hysterectomy with bilateral salpingectomy. Surgeon Mauri Tellez MD Anesthesia General Indications heavy vaginal bleeding, pelvic pain Findings Normal appearing uterus, fallopian tubes, ovaries. Description of Procedure This patient was taken to the operating room. She was prepped and draped in the dorsal lithotomy position after induction of general anesthesia. The uterine manipulator and Franci cup were placed. This was done with a speculum and tenaculum. The speculum was placed. The cervix was grasped with a tenaculum. The stay sutures were placed at 3 and 9:00 a.m.. The stay sutures of 0 Vicryl were tied to the appropriately Size scope after it was slipped around the cervix.. The tip of the MELISSA manipulator was placed in the intrauterine cavity. The cup was slid into place around the cervix and into the fornices. It was locked into place. The sutures were then wrapped around the handle and tied under tension. A 8 mm skin incision was made in the left upper quadrant the abdomen. a 5 mm Visiport trocar was inserted into abdominal cavity and pneumoperitoneum was achieved. A 8 mm supraumbilical incision was made and a 8 mm trocar was inserted into the intrauterine cavity under direct visualization of the scope. an 8 mm incision was made in the right upper quadrant of the abdomen and an 8 mm robotic trocar was placed the inter uterine cavity under direct visualization the scope. An 11 mm trocar was inserted in the right upper quadrant of the abdomen rectal is a cystoscope after an incision was made there as well. The robot was docked. Electronic Orientation of the robot was performed. Bilateral ureteral lysis was performed. This was done from the pelvic brim down to the uterine artery. This was done with careful dissection using sharp and blunt dissection. The fallopian tubes were removed bilaterally. The mesosalpinx around the fallopian tubes were cauterized transected with LigaSure cautery. This was done in a bilateral fashion from the ovary to the uterine cornua. The fallopian tube was transected at the uterine cornu and amputated. The tube was taken out the left lower quadrant trocar site. In a stepwise fashion along the lateral aspects of the uterus the round ligament and broad ligaments were cauterized transected down to the level of the uterine arteries. A bladder flap was created in the bladder was moved distally to the end of the cervix and over the Franci cup. The bilateral uterine arteries were cauterized and transected. Colpotomy was then performed. In a circumferential fashion the vagina was transected using unipolar cautery. The incision was made down on the Franci cup. The uterus and cervix were taken out through the vagina. A pneumo occluder was placed in the vagina. The vaginal cuff was closed with a 0 V lock suture in a running fashion. The pelvis was irrigated with copious amounts antibiotic irrigation. The ureters were again examined and found to be intact and flowing freely under the uterine arteries into the bladder. The bladder was intact. It was examined directly. Cystoscopy was performed after administration of methylene blue. The cystoscope was inserted. Bladder was distended with fluid. The ureteric meatus was observed bilaterally. Blue fluid was seen to egress bilaterally. The bladder was drained and the cystoscope was withdrawn. The vagina was irrigated with Betadine solution after removal of the Pneumo occluder. the trocars were removed after the robot was undocked. The skin was closed with subacute or Dermabond. The patient was taken to recovery room. She was stable condition. Sponge lap and needle counts were correct x2. Estimated Blood Loss 75 Urine Output 800 Drains Yes Packing No Pathology Yes Complications No immediate complications Condition Stable Disposition Floor
[2025-01-14] MEDS: fentaNYL CITRATE INJ (*CRX) 100 MCG/2 ML VIAL 25 MCG IV PUSH ×4 (10:15→10:35)
[2025-01-14] MEDS: oxyCODONE HCL (*CRX) 5 MG TAB IR PO ×2 (11:45→15:44)
[2025-01-14] MEDS: DEXTROSE 5%/0.45% SOD CHL 1,000 ML 125 ML IV CONT (11:45)
[2025-01-14] MEDS: SIMETHICONE 80 MG TAB.CHEW PO ×2 (13:10→19:01)
[2025-01-14] MEDS: DOCUSATE SODIUM 100 MG CAPSULE PO (19:01)
--- NOTE | 2025-01-14 19:15 | PHAR ---
PT'S HOME MEDS LURASIDONE 40 MG TAB AND LITHIUM CARBONATE ER 300 MG TAB VERIFIED BY PHARMACY
[2025-01-14] MEDS: LITHIUM CARBONATE 300 MG 1 EACH PO (21:49)
[2025-01-15 00:38] VITALS: BP 110/71; PULSE 77; RESP 16; TEMP 36.8; O2SAT 97
[2025-01-15] MEDS: ACETAMINOPHEN 500 MG TABLET 1000 MG PO ×2 (00:38→07:06)
[2025-01-15 03:54] VITALS: BP 105/68; PULSE 77; RESP 16; TEMP 36.9; O2SAT 97
[2025-01-15] MEDS: DOCUSATE SODIUM 100 MG CAPSULE PO (07:04)
[2025-01-15] MEDS: SIMETHICONE 80 MG TAB.CHEW PO (07:04)
[2025-01-15] MEDS: oxyCODONE HCL (*CRX) 5 MG TAB IR PO (07:06)
[2025-01-15 07:45] VITALS: BP 120/79; PULSE 65; RESP 16; TEMP 36.8; O2SAT 96
--- NOTE | 2025-01-15 08:40 | P.PNOB_ITS ---
NURSES ASSISTANT - A/P Postoperative Procedures: Procedures Operation Date: 01/14/25 07:30 Actual Procedure Side Surgeon p Robotic Assisted Hysterectomy with Bilateral Salpingectomy Bilateral Mauri Tellez MD Postoperative day: 1 Postoperative status: doing well Postoperative plan: see orders Time Spent With Patient Time: Total time spent is greater than 50% in coordination of care (as documented) at patient's floor/unit and/or counseling patient: Time with patient: less than 15 minutes NURSES ASSISTANT- PN:Subj Post-Op Subjective Date/time seen: 01/15/25 08:40 Subjective: patient reports feeling better, patient has no complaints and pain is well controlled Exam Const: General: healthy appearing, comfortable and no acute distress Resp: Auscultation: clear to auscultation bilaterally, no rales, no rhonchi and no wheezes Cardio: Rate: regular rate Heart sounds: no click, no murmurs and no rubs GI: Inspection: non-distended Auscultation: normal bowel sounds Extrem: General: normal to inspection, no pedal edema and no calf tenderness NURSES ASSISTANT - PN: Obj Data Vital Signs Vital Signs: Vital Signs - 24 hr 01/14/25 09:53 01/14/25 10:05 01/14/25 10:20 Temperature 97.0 F L Pulse Rate 104 H 103 H 104 H Respiratory Rate 20 22 H 20 Blood Pressure 149/94 H 140/84 152/89 H Pulse Oximetry 100 100 92 Oxygen Delivery Simple Face Mask Simple Face Mask Room Air Oxygen Flow Rate 8 8 01/14/25 10:35 01/14/25 10:50 01/14/25 11:10 Temperature 98.7 F Pulse Rate 93 82 91 Respiratory Rate 18 14 18 Blood Pressure 132/88 117/79 114/68 Pulse Oximetry 93 100 96 Oxygen Delivery Nasal Cannula Nasal Cannula Oxygen Flow Rate 2 2 01/14/25 11:15 01/14/25 13:06 01/14/25 15:25 Temperature 98.6 F Pulse Rate 80 Respiratory Rate 18 Blood Pressure 119/71 Pulse Oximetry 95 99 97 Oxygen Delivery Nasal Cannula Room Air Oxygen Flow Rate 2 01/14/25 15:44 01/14/25 19:01 01/14/25 19:52 Temperature 99.1 F Pulse Rate 77 Respiratory Rate 18 Blood Pressure 106/70 Pulse Oximetry 98 Oxygen Delivery Room Air Room Air Oxygen Flow Rate 01/15/25 00:38 01/15/25 03:54 01/15/25 07:15 Temperature 98.3 F 98.5 F Pulse Rate 77 77 Respiratory Rate 16 16 Blood Pressure 110/71 105/68 Pulse Oximetry 97 97 Oxygen Delivery Room Air Oxygen Flow Rate Intake/Output Intake/Output: Intake & Output 01/12/25 01/13/25 01/14/25 01/15/25 23:59 23:59 23:59 23:59 Intake Total 1450 Output Total 3220 865 Balance -1770 -553 Meds/Results Medications: Active Medications Generic Name Dose Route Start Last Admin Trade Name Freq PRN Reason Stop Dose Admin Acetaminophen 1,000 mg 01/14/25 12:00 01/15/25 07:06 Acetaminophen 500 Mg Tablet PO 1,000 mg Q6HR JORGE Administration Amlodipine Besylate 10 mg 01/14/25 21:00 01/14/25 20:37 Amlodipine Besylate 10 Mg Tablet PO Not Given HS JORGE Docusate Sodium 100 mg 01/14/25 17:00 01/15/25 07:04 Docusate Sodium 100 Mg Capsule PO 100 mg BID JORGE Administration Dextrose/Sodium Chloride 1,000 mls @ 125 mls/hr 01/14/25 10:57 01/14/25 21:16 Dextrose 5% Sodium Chloride 0.45% IV CONT Not Given .Q8H JORGE Lurasidone HCl 40 mg 01/14/25 21:00 01/14/25 21:49 Lurasidone Hcl 40 Mg Tablet PO Not Given HS JORGE Naloxone HCl 0.1 mg 01/14/25 10:57 Naloxone Hcl 0.4 Mg/Ml Vial IV PUSH Q2M PRN Respiratory rate less than 10 Non-Formulary ( 1 each 01/14/25 21:00 01/14/25 21:49 [place] Carbonate PO 02/13/25 20:59 1 each 300 Mg Oral Tablet, HS JORGE Administration Extended Release) Ondansetron HCl 4 mg 01/14/25 10:57 Ondansetron Inj 4 Mg/2 Ml Vial IV PUSH Q6H PRN Nausea And Vomiting Oxycodone HCl 5 mg 01/14/25 10:57 01/15/25 07:06 Oxycodone Hcl (*Crx) 5 Mg Tab Ir PO 5 mg Q4H PRN Administration Pain Rated 4-6 Oxycodone HCl 10 mg 01/14/25 10:57 Oxycodone Hcl (*Crx) 5 Mg Tab Ir PO Q6H PRN Pain Rated 7-10 Simethicone 80 mg 01/14/25 12:00 01/15/25 07:04 Simethicone 80 Mg Tab.Chew PO 80 mg TIDWM JORGE Administration
== END 2025-01-15 11:00 | disposition home or self-care (01) ==
LOC: ANHSURGERY 07:16 → ANHOB2 10:58
PROVIDERS: PCP Family Medicine; Visit Provider Obstetrics & Gynecology
PROC: (CPT 58571; principal; 2025-01-14 07:30)
DX: N80.03 Adenomyosis of the uterus (principal); G89.18 Other acute postprocedural pain; I10 Essential (primary) hypertension; F41.9 Anxiety disorder, unspecified; F31.9 Bipolar disorder, unspecified; G40.909 Epilepsy, unspecified, not intractable, without status epilepticus; E66.9 Obesity, unspecified; Z68.30 Body mass index [BMI] 30.0-30.9, adult; Z98.890 Other specified postprocedural states; Z80.0 Family history of malignant neoplasm of digestive organs; Z80.49 Family history of malignant neoplasm of other genital organs
CPT/HCPCS: 58571; S2900; 88307; 99199; J0690; A9270; J1100; J1171; J2003; J2250; J2405; J2704; J3010; J7030; J7120; Q9968